=== PATIENT | female | born 1970 | race Caucasian/White ===

== ENCOUNTER 2021-06-21 20:40 | Inpatient (IN) | payer OTHER, SELFPAY ==
[~2021-06-21] VITALS: Ht 149.9 cm; Wt 52.6 kg
[2021-06-21 20:43] VITALS: BP_SYST 190
[2021-06-21 23:20] LABS: BASOPHILS % (AUTO) 0.3 % (0.0-2.0); EOSINOPHILS # (AUTO) 0.1 K/uL (0.0-0.4); EOSINOPHILS % (AUTO) 0.9 % (0.0-4.0); HEMATOCRIT 32.8 % (36-48); HEMOGLOBIN 11.4 g/dL (12.0-16.0); LYMPHOCYTES # (AUTO) 1.4 K/uL (1.0-5.5); LYMPHOCYTES % (AUTO) 9.7 % (20.5-51.5); MEAN CORPUSCULAR HEMOGLOBIN 32 pg (27-31); MEAN CORPUSCULAR HGB CONC 35 % (32-36); MEAN CORPUSCULAR VOLUME 93 fL (79.0-98.0); MONOCYTES # (AUTO) 1.1 K/uL (0.0-1.0); MONOCYTES % (AUTO) 7.6 % (1.7-9.3); NEUTROPHILS # (AUTO) 11.6 K/uL (1.8-7.7); NEUTROPHILS % (AUTO) 81.5 % (40.0-70.0); PLATELET COUNT (AUTO) 469 K/uL (130-430); RED BLOOD CELL COUNT(AUTO) 3.51 MIL/uL (4.2-6.2); RED CELL DISTRIBUTION WIDTH 13.8 % (9.0-15.0); WHITE BLOOD COUNT (AUTO) 14.2 K/uL (4.8-10.8)
[2021-06-21 23:52] LABS: ANION GAP 11 (5-15); CALCIUM 8.9 mg/dL (8.4-11.0); CREATININE 0.47 mg/dL (0.55-1.30); GLUCOSE 115 mg/dL (70-99); POTASSIUM 3.1 mmol/L (3.5-5.1); UREA NITROGEN, BLOOD 11 mg/dL (8-21)
[2021-06-21 23:58] LABS: PROTHROMBIN TIME 9.8 SECS (9.5-12.5)
[2021-06-22] VITALS (11 sets, daily range): BP systolic 93–142
[2021-06-22 00:01] LABS: ALANINE AMINOTRANSFERASE 15 U/L (12-78); ALBUMIN 3.4 g/dL (3.4-4.8); ALCOHOL, BLOOD 3 mg/dL (<10); ASPARTATE AMINOTRANSFERASE 29 U/L (10-37); TOTAL BILIRUBIN 1.6 mg/dL (0.0-1.0)
[2021-06-22 00:08] LABS: CHLORIDE 81 mmol/L (98-107); GFR AFRICAN AMERICAN 180 mL/min (>90); SODIUM SERUM 116 mmol/L (136-145)
[2021-06-22] MEDS ORDERED: SODIUM CHLORIDE 3% *HI-ALERT* 100 ML IV ONE (00:45)
[2021-06-22 00:46] LABS: BARBITURATE, URINE NEGATIVE (NEG <=200); BENZODIAZEPINE, URINE NEGATIVE (NEG <=150); CANNABINOID, URINE NEGATIVE (NEG <=50); COCAINE, URINE NEGATIVE (NEG <=150); METHAMPHETAMINES SCREEN,URINE NEGATIVE (NEG <=500); OPIATE, URINE NEGATIVE (NEG <=100); PHENCYCLIDINE SCREEN,URINE NEGATIVE (NEG <=25); UR TRICYCLIC ANTIDEPRESSANTS POSITIVE (NEG <=300); URINE AMPHETAMINE NEGATIVE (NEG <=500); URINE METHADONE NEGATIVE (NEG <=200)
[2021-06-22 00:47] LABS: URINE OXYCODONE SCREEN NEGATIVE (NEG <=100); URINE PROPOXYPHENE SCREEN NEGATIVE (NEG <=300)
[2021-06-22] MEDS ORDERED: NACL 0.9% 1,000 ML IV ONE (01:00)
[2021-06-22] MEDS ORDERED: LOSA25TA18 (01:21)
[2021-06-22] MEDS ORDERED: SER25 (01:21)
[2021-06-22] MEDS ORDERED: MAGNESIUM SULFATE 50 ML IV ONE (01:30)
[2021-06-22] MEDS ORDERED: KCL 20 mEq in 100 mL (PREMIX) 100 ML IV ONE (01:30)
[2021-06-22] MEDS: NACL 0.9% 1,000 ML IV SCH ×3 (03:05→17:24)
[2021-06-22 07:11] LABS: CREATINE KINASE MB 9.2 ng/mL (0-3.6)
[2021-06-22 07:17] LABS: ACETAMINOPHEN < 1 ug/mL (1-30)
[2021-06-22 07:37] LABS: BASOPHILS % (AUTO) 0.4 % (0.0-2.0); EOSINOPHILS # (AUTO) 0.3 K/uL (0.0-0.4); EOSINOPHILS % (AUTO) 3.9 % (0.0-4.0); HEMATOCRIT 31.6 % (36-48); HEMOGLOBIN 11.1 g/dL (12.0-16.0); LYMPHOCYTES # (AUTO) 1.5 K/uL (1.0-5.5); LYMPHOCYTES % (AUTO) 19.1 % (20.5-51.5); MEAN CORPUSCULAR HEMOGLOBIN 33 pg (27-31); MEAN CORPUSCULAR HGB CONC 35 % (32-36); MEAN CORPUSCULAR VOLUME 94 fL (79.0-98.0); MONOCYTES # (AUTO) 1.1 K/uL (0.0-1.0); MONOCYTES % (AUTO) 14.2 % (1.7-9.3); NEUTROPHILS # (AUTO) 4.9 K/uL (1.8-7.7); NEUTROPHILS % (AUTO) 62.4 % (40.0-70.0); PLATELET COUNT (AUTO) 471 K/uL (130-430); RED BLOOD CELL COUNT(AUTO) 3.36 MIL/uL (4.2-6.2); WHITE BLOOD COUNT (AUTO) 7.8 K/uL (4.8-10.8)
[2021-06-22 08:04] LABS: ALBUMIN 3.2 g/dL (3.4-4.8); CREATININE 0.39 mg/dL (0.55-1.30); POTASSIUM 3.7 mmol/L (3.5-5.1); THYROID STIMULATING HORMONE 0.81 uIu/mL (0.36-3.74); TOTAL BILIRUBIN 0.8 mg/dL (0.0-1.0)
[2021-06-22] MEDS ORDERED: THIAMINE HCL 100 MG TABLET PO ONE (09:45)
[2021-06-23 00:39] LABS: CALCIUM 8.4 mg/dL (8.4-11.0); CREATININE 0.43 mg/dL (0.55-1.30); POTASSIUM 4.2 mmol/L (3.5-5.1)
[2021-06-23 00:56] LABS: ALBUMIN 2.9 g/dL (3.4-4.8); THYROID STIMULATING HORMONE 1.54 uIu/mL (0.36-3.74); TOTAL BILIRUBIN 0.3 mg/dL (0.0-1.0)
[2021-06-23 01:14] LABS: BILIRUBIN,URINE NEGATIVE (NEGATIVE); BLOOD, URINE 1+ (NEGATIVE); CLARITY/URINE CLEAR (CLEAR); COLOR,URINE YELLOW (YELLOW); GLUCOSE,URINE NEGATIVE (NEGATIVE); KETONES,URINE NEGATIVE (NEGATIVE); LEUKOCYTE ESTERASE ,URINE 1+ (NEGATIVE); NITRITE, URINE NEGATIVE (NEGATIVE); PROTEIN URINE NEGATIVE (NEGATIVE); UROBILINOGEN,URINE 0.2 (0.2-1.0)
[2021-06-23 01:19] VITALS: BP_SYST 140
[2021-06-23 02:20] LABS: RBC,URINE 0-3 /HPF (0-3)
[2021-06-23 02:21] LABS: BACTERIA,URINE FEW /HPF (None Seen); MUCUS,URINE None Seen /LPF (None Seen); TRICHOMONAS,URINE None Seen /HPF (None Seen); YEAST,URINE None Seen /HPF (None Seen)
[2021-06-23 02:41] VITALS: BP_SYST 101
[2021-06-23 06:48] LABS: EOSINOPHILS # (AUTO) 0.3 K/uL (0.0-0.4); EOSINOPHILS % (AUTO) 4.5 % (0.0-4.0); HEMATOCRIT 32.3 % (36-48); HEMOGLOBIN 11.1 g/dL (12.0-16.0); LYMPHOCYTES # (AUTO) 2.1 K/uL (1.0-5.5); LYMPHOCYTES % (AUTO) 30.5 % (20.5-51.5); MEAN CORPUSCULAR HEMOGLOBIN 33 pg (27-31); MEAN CORPUSCULAR HGB CONC 34 % (32-36); MEAN CORPUSCULAR VOLUME 97 fL (79.0-98.0); MONOCYTES % (AUTO) 14.1 % (1.7-9.3); PLATELET COUNT (AUTO) 458 K/uL (130-430); RED BLOOD CELL COUNT(AUTO) 3.35 MIL/uL (4.2-6.2); RED CELL DISTRIBUTION WIDTH 14.4 % (9.0-15.0); WHITE BLOOD COUNT (AUTO) 6.9 K/uL (4.8-10.8)
[2021-06-23 07:40] LABS: URIC ACID 2.6 mg/dL (2.4-7.0)
[2021-06-23 07:54] VITALS: BP_SYST 141
[2021-06-23 08:58] LABS: BASOPHILS % (AUTO) 0.2 % (0.0-2.0); NEUTROPHILS # (AUTO) 3.5 K/uL (1.8-7.7); NEUTROPHILS % (AUTO) 50.7 % (40.0-70.0)
[2021-06-23] MEDS ORDERED: THIAMINE HCL 100 MG TABLET PO SCH (09:00)
[2021-06-23] MEDS ORDERED: FOLIC ACID 1 MG TABLET PO SCH (09:00)
[2021-06-23 10:01] LABS: CALCIUM 8.5 mg/dL (8.4-11.0); CREATININE 0.44 mg/dL (0.55-1.30); POTASSIUM 4.3 mmol/L (3.5-5.1)
[2021-06-23 12:11] VITALS: BP_SYST 133
[2021-06-23 13:16] VITALS: BP_SYST 133
== END 2021-06-23 14:00 | disposition home or self-care (01) | DRG 101 ==
LOC: SED 20:40 → SIC 06-22 01:27 → STU 06-22 10:08
PROVIDERS: ADMIT Internal Medicine; ATTEND Internal Medicine
DX: R56.9 Unspecified convulsions (principal); E87.1 Hypo-osmolality and hyponatremia; F20.0 Paranoid schizophrenia; R45.851 Suicidal ideations; F32.A Depression, unspecified; E87.6 Hypokalemia; I10 Essential (primary) hypertension; F17.210 Nicotine dependence, cigarettes, uncomplicated; R63.1 Polydipsia; Z20.822 Contact with and (suspected) exposure to COVID-19; D72.829 Elevated white blood cell count, unspecified; F10.20 Alcohol dependence, uncomplicated; Z79.899 Other long term (current) drug therapy
CPT/HCPCS: 36415; 70450-TC; 71045; 76376; 80048; 80053; 80061; 80307; 81000; 82550; 82553; 83605; 83735; 83880; 83930; 83935; 84302; 84443; 84484; 84550; 85025; 85610-TC; 85730-TC; 87040; 87081; 87086; 93005; 93306; 95816; 96361; 96365; 96368; 99285; G0378; G0480; G0481; G0482; J3475; J3480; J3490

== ENCOUNTER → 2021-09-13 | Emergency (ER) | payer OTHER ==
[~2021-09-13] VITALS: Ht 154.9 cm; Wt 45.4 kg
[~2021-09-13] MED LIST: LOSA25TA18; NACL 0.9% 1,000 ML IV ONE; NAPR-688 PO; PENI500T PO; SER25; TRAZ-251 PO
[2021-09-13 10:10] VITALS: BP_SYST 93
--- NOTE | 2021-09-13 10:15 | NUR ---
Patient to ER bed 5 to gown for evaluation. Side rails up. Report given to SANJAY MURRAY
--- NOTE | 2021-09-13 10:20 | NUR ---
ER at bedside examining patient.
[2021-09-13 10:56] LABS: BASOPHILS % (AUTO) 0.3 % (0.0-2.0); EOSINOPHILS # (AUTO) 0.1 K/uL (0.0-0.4); EOSINOPHILS % (AUTO) 1.1 % (0.0-4.0); HEMATOCRIT 35.6 % (36-48); HEMOGLOBIN 12.6 g/dL (12.0-16.0); LYMPHOCYTES # (AUTO) 1.2 K/uL (1.0-5.5); MEAN CORPUSCULAR HEMOGLOBIN 33 pg (27-31); MEAN CORPUSCULAR HGB CONC 36 % (32-36); MEAN CORPUSCULAR VOLUME 92 fL (79.0-98.0); MONOCYTES # (AUTO) 0.5 K/uL (0.0-1.0); MONOCYTES % (AUTO) 5.8 % (1.7-9.3); NEUTROPHILS # (AUTO) 6.6 K/uL (1.8-7.7); NEUTROPHILS % (AUTO) 78.8 % (40.0-70.0); PLATELET COUNT (AUTO) 402 K/uL (130-430); RED BLOOD CELL COUNT(AUTO) 3.86 MIL/uL (4.2-6.2); RED CELL DISTRIBUTION WIDTH 13.7 % (9.0-15.0); WHITE BLOOD COUNT (AUTO) 8.4 K/uL (4.8-10.8)
[2021-09-13 11:10] LABS: ANION GAP 5 (5-15); CALCIUM 8.4 mg/dL (8.4-11.0); CHLORIDE 97 mmol/L (98-107); CREATININE 0.63 mg/dL (0.55-1.30); GLUCOSE 113 mg/dL (70-99); SODIUM SERUM 129 mmol/L (136-145); UREA NITROGEN, BLOOD 11 mg/dL (8-21)
[2021-09-13 11:17] LABS: BILIRUBIN,URINE NEGATIVE (NEGATIVE); CLARITY/URINE CLEAR (CLEAR); COLOR,URINE YELLOW (YELLOW); GLUCOSE,URINE NEGATIVE (NEGATIVE); KETONES,URINE NEGATIVE (NEGATIVE); LEUKOCYTE ESTERASE ,URINE NEGATIVE (NEGATIVE); NITRITE, URINE POSITIVE (NEGATIVE); PH,URINE 6.5 (5.0-8.0); PROTEIN URINE TRACE (NEGATIVE); UROBILINOGEN,URINE 0.2 (0.2-1.0)
[2021-09-13 11:19] LABS: ALANINE AMINOTRANSFERASE 22 U/L (12-78); ALBUMIN 3.6 g/dL (3.4-4.8); ASPARTATE AMINOTRANSFERASE 19 U/L (10-37); TOTAL BILIRUBIN 0.3 mg/dL (0.0-1.0)
[2021-09-13 11:22] LABS: BLOOD, URINE TRACE (NEGATIVE)
[2021-09-13 11:28] LABS: GFR AFRICAN AMERICAN 128 mL/min (>90)
[2021-09-13 11:40] LABS: BARBITURATE, URINE NEGATIVE (NEG <=200); BENZODIAZEPINE, URINE NEGATIVE (NEG <=150); CANNABINOID, URINE NEGATIVE (NEG <=50); COCAINE, URINE NEGATIVE (NEG <=150); METHAMPHETAMINES SCREEN,URINE NEGATIVE (NEG <=500); OPIATE, URINE NEGATIVE (NEG <=100); PHENCYCLIDINE SCREEN,URINE NEGATIVE (NEG <=25); UR TRICYCLIC ANTIDEPRESSANTS POSITIVE (NEG <=300); URINE AMPHETAMINE NEGATIVE (NEG <=500); URINE METHADONE NEGATIVE (NEG <=200); URINE OXYCODONE SCREEN NEGATIVE (NEG <=100); URINE PROPOXYPHENE SCREEN NEGATIVE (NEG <=300)
[2021-09-13 11:49] LABS: ALCOHOL, BLOOD < 3 mg/dL (<10)
[2021-09-13 11:57] LABS: BACTERIA,URINE MODERATE /HPF (None Seen); WBC,URINE NONE SEEN /HPF (0-3)
[2021-09-13 12:20] VITALS: BP_SYST 110
== END | disposition home or self-care (01) ==
LOC: SED 10:02
DX: R55 Syncope and collapse (principal); Z79.899 Other long term (current) drug therapy
CPT/HCPCS: 36415; 80053; 80307; 81000; 84484; 85025; 99283; G0482; 99284

== ENCOUNTER 2023-12-25 10:46 | Emergency (ER) | payer OTHER ==
[~2023-12-25] VITALS: Ht 154.9 cm; Wt 48.1 kg
[~2023-12-25 10:46] MED LIST changes: -NACL 0.9% 1,000 ML IV ONE
[2023-12-25 10:53] VITALS: BP_SYST 177; PULSE 81; RESP 22; TEMP 98.3; O2SAT 98
[2023-12-25 11:20] LABS: BASOPHILS % (AUTO) 0.3 % (0.0-2.0); EOSINOPHILS % (AUTO) 0.2 % (0.0-4.0); HEMATOCRIT 38.5 % (36-48); HEMOGLOBIN 13.1 g/dL (12.0-16.0); LYMPHOCYTES # (AUTO) 1.1 K/uL (1.0-5.5); LYMPHOCYTES % (AUTO) 10.4 % (20.5-51.5); MEAN CORPUSCULAR HEMOGLOBIN 33 pg (27-31); MEAN CORPUSCULAR HGB CONC 34 % (32-36); MEAN CORPUSCULAR VOLUME 96 fL (79.0-98.0); MONOCYTES # (AUTO) 0.7 K/uL (0.0-1.0); MONOCYTES % (AUTO) 6.6 % (1.7-9.3); NEUTROPHILS # (AUTO) 9.1 K/uL (1.8-7.7); NEUTROPHILS % (AUTO) 82.5 % (40.0-70.0); PLATELET COUNT (AUTO) 542 K/uL (130-430); RED BLOOD CELL COUNT(AUTO) 4.02 MIL/uL (4.2-6.2); RED CELL DISTRIBUTION WIDTH 15.2 % (9.0-15.0)
[2023-12-25] MEDS: ONDANSETRON 4 MG ODT TAB PO ONE (11:26)
[2023-12-25 11:47] LABS: ALANINE AMINOTRANSFERASE 21 U/L (12-78); ALBUMIN 4.5 g/dL (3.4-4.8); ANION GAP 9 (5-15); ASPARTATE AMINOTRANSFERASE 25 U/L (10-37); CALCIUM 9.2 mg/dL (8.4-11.0); CARBON DIOXIDE 27 mmol/L (23-29); CHLORIDE 93 mmol/L (98-107); CREATININE 0.88 mg/dL (0.55-1.30); GFR AFRICAN AMERICAN 86 mL/min (>90); GLUCOSE 140 mg/dL (74-106); POTASSIUM 3.5 mmol/L (3.5-5.1); SODIUM SERUM 129 mmol/L (136-145); TOTAL BILIRUBIN 0.8 mg/dL (0.0-1.0); UREA NITROGEN, BLOOD 11 mg/dL (8-21)
[2023-12-25 11:48] LABS: GFR NON AFRICAN-AMERICAN 71 mL/min (>90)
[2023-12-25 11:49] LABS: BILIRUBIN,DIRECT 0.2 mg/dL (0.0-0.3)
[2023-12-25] MEDS: cloNIDine HCL 0.1 MG TABLET PO ONE (12:14)
[2023-12-25] MEDS: NACL 0.9% 1,000 ML IV ONE (12:14)
[2023-12-25] MEDS ORDERED: NALT50TA5 PO (12:17)
[2023-12-25 13:50] VITALS: TEMP 98.1
[2023-12-25 14:13] VITALS: BP_SYST 155; PULSE 88; RESP 22; O2SAT 87
== END 2023-12-25 13:48 | disposition home or self-care (01) ==
LOC: SED 10:46
DX: R07.89 Other chest pain (principal); F10.20 Alcohol dependence, uncomplicated; I10 Essential (primary) hypertension; Z79.899 Other long term (current) drug therapy; Z79.2 Long term (current) use of antibiotics; Y90.9 Presence of alcohol in blood, level not specified
CPT/HCPCS: 99285; 71045; 80076; 80048; 83880; 85025; 84484; 36415; 93005; Q0162